=== PATIENT | female | born 1975 ===

== ENCOUNTER 2025-05-02 11:13 | Outpatient (AMB) | payer OTHER, SELFPAY ==
--- NOTE | 2025-05-02 11:25 | A.OFFVIS_ITS ---
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 I was seeing her at [facility] and providing her with Botox therapy that was working well to control her migraines. I saw her last on 01/13/2025 at which time I did perform Botox therapy. She was using Toradol as needed for abortive therapy no more than 2 days per week and was taking magnesium 400 mg daily. Historically, her migraines have been bilateral occipital and radiating to the temporal areas with some associated facial pain. Her migraines tend to be worse on the left but she does still have right-sided pain. Migraines are accompanied by light and sound sensitivity. Prior to initiation of Botox therapy, her migraines were occurring daily. After initiation of Botox therapy however migraines were occurring much less frequent on average a 3-5 times per month typically occurring in a cluster of time. The Botox therapy significantly helps her day-to-day activity. Today she tells me that since the time of our last visit back in December of 2024, her headaches has been more frequent averaging 3-4 days per week with varying intensity but always accompanied by light and sound sensitivity. She was due for Botox therapy 04/15/2025. In the time being, she was recently started on celecoxib 200 mg for her knee pain which does help somewhat with her head pain which is how she is currently managing. In the past, with long gaps in Botox therapy, her headaches have escalated significantly and it has been difficult to regain good control. She is fearful to be back with extremely poor control of her headaches as she has been in the past. She also updates me today on some other health issues she is dealing with: She has had repeat right-sided knee effusions. She has had it drained several times. She last had it drained 2 weeks ago. She has a second opinion in June at [facility]. She will be trying go get a second opinion at [facility]. Subsequently an old left hip injury began flaring up. She saw [facility] for the left hip recently who she has seen for the same reason in the past. She was trailed on Methadone for pain control given her history of opiate abuse but she was extremely somnolent at that time and has since been experiencing some residual side-effects with lower dose (on 18mg daily). She has tried Suboxone before which she had difficulty tolerating due to the taste and related nausea. Past medication trials: Amitriptyline- fatigue Topiramate-not effective Botox therapy-works well for preventive measures Sumatriptan-chest tightness Ubrelvy-no significant benefit Nurtec-no significant benefit Prior workup: MRI of the brain with and without contrast performed 12/17/2023: No acute/subacute infarct, mass, hemorrhage, or other acute intracranial abnormality to explain the patient's symptoms. [facility] Medical History (Updated 05/02/25 @ 12:02 by Ofelia Vinson CNP) Cervicalgia PLMD (periodic limb movement disorder) RLS (restless legs syndrome) Hyponatremia SHELLY on CPAP Depression Migraine Back pain Anxiety Surgical History (Updated 03/14/25 @ 09:11 by Clifton Staton CMA) H/O bladder repair surgery Previous section H/O: hysterectomy Review of Systems Const All systems reviewed & are unremarkable except as noted in HPI and below Physical Exam Const General: cooperative, healthy appearing, comfortable and no acute distress Nutritional Appearance: well nourished Orientation/consciousness: patient oriented x3 Limitations: no limitations HEENT Head: Yes normal to inspection and Yes normocephalic Eyes General: appearance normal, both eyes and all related structures Visual Zuniga: normal visual zuniga by confrontation Alignment and Position: alignment normal Periorbital: periorbital findings normal Eyelids: Yes eyelids normal Conjunctivae: conjunctivae normal Sclerae: sclerae normal Neck Neck: Yes normal visual inspection and Yes full ROM General: Yes no CVA tenderness Back/Spine/Pelvis Back: no CVA tenderness Cervical Spine: normal cervical lordosis Thoracic/Lumbar Spine: thoracic and lumbar spine normal to inspection Neuro General: patient oriented x3 Cranial nerves: Yes CN's II-XII intact bilaterally and Yes Facial sensation intact/muscles of mastication intact Cognition (Neuro): normal cognition Gait exam (Neuro): Antalgic gait present Motor exam (neuro): no tremor noted Sensory Exam: double simultaneous stimulation for sensation normal Romberg Test: Negative Pupils: Normal pupillary reactivity/response: bilateral Psych Appearance: grossly normal Mental Status: mental status grossly normal Speech and movement: Normal speech and movement present and Clear speech present Affect: normal affect Attitude: cooperative Thought process: Normal thought process present Thought content: Normal thought content present Insight: Good insight present (Psych) Judgement: Good judgement present (Psych) Assessment & Plan Assessment & Plan (1) Chronic migraine without aura without status migrainosus, not intractable: Code(s): G43.709 - Chronic migraine without aura, not intractable, without status migrainosus Category: Medical Plan lAta is a 50-year-old female patient with a past medical history of anxiety, depression, hysterectomy, SIADH, opiate use disorder with a long history of migraine here today to reestablish care for migraine treatment and management. She has historically done very well on Botox and she is currently lapsed in her therapy. She has seen in increase in her migraines over the course of the last month or so but has been keeping them at bay with her suboccipital she has been using for her knee. She has also been on methadone which is perhaps minimizing the headaches as well but she does have plans to come off of this. She has tried numerous therapies in the past for migraine control. Please see above for further details. I would like to reestablish her Botox therapy here at the [facility]. I will have my team submit for prior authorization. -restart Botox therapy. I will have prior authorization submitted -at time of next visit, consider review of abortive options. Could consider a trial of indomethacin if she comes off of other NSAIDs Medications: Changed From onabotulinumtoxinA (Botox) IM To onabotulinumtoxinA (Botox) 155 units IM ONCE 1 ea 3RF 12 weeks Coding Level of Care Code Est Pt Level 4 (85314) Diagnoses Chronic migraine without aura without status migrainosus, not intractable G43.709
[2025-05-02 11:34] VITALS: BP 128/90; PULSE 91; RESP 16; O2SAT 99; BMI 24.9
== END 2025-05-02 12:05 | disposition home or self-care (01) ==
LOC: HO.HSM 11:13
PROVIDERS: PCP Internal Medicine; Visit Provider Nurse Practitioner
DX: G43.709 Chronic migraine without aura, not intractable, without status migrainosus (principal)
CPT/HCPCS: 99214